=== PATIENT | male | born 1970 | race Caucasian/White ===

== ENCOUNTER 2017-08-29 10:59 | Emergency (ER) | payer OTHER, SELFPAY ==
[2017-08-29 12:44] LABS: #Eosinphils 0.1 thou/uL (0.0-0.7); #Monocytes 1.3 thou/uL (0.11-0.59); #Neutrophils 14.7 thou/uL (1.40-6.50); %Basophils 0.2 % (0.0-1.0); %Eosinophils 0.4 % (0.0-10.0); %Lymphocytes 5.7 % (21.0-51.0); %Monocytes 7.4 % (0.0-10.0); Hematocrit 41.4 % (42.0-52.0); Mean Platelet Volume 7.4 fL (7.4-10.4); Red Blood Cell (RBC) Count 3.84 mill/uL (4.70-6.10); White Blood Cell (WBC) Count 17.1 thou/uL (4.8-10.8)
[2017-08-29 12:51] LABS: PTT 27.1 SEC (22.9-36.1); Prothrombin Time 13.8 SEC (12.0-14.7)
[2017-08-29 12:57] LABS: Lactic Acid - Sepsis 1.3 mmol/L (0.5-2.2)
[2017-08-29 13:08] LABS: Anion Gap 11 mmol/L (10-20); BUN (Urea Nitrogen) 6 mg/dL (8.9-20.6); Calc. Creatinine Clearance 0 mL/min (70-130); Calcium 9.7 mg/dL (7.8-10.44); Carbon Dioxide 28 mmol/L (22-29); Chloride 102 mmol/L (98-107); Estimated GFR-MDRD Greater than 90
[2017-08-29] MEDS ORDERED: Morphine 2 MG/ML SYRINGE ONE ×2 (13:17→14:42)
[2017-08-29] MEDS ORDERED: Ondansetron HCl/PF 4 MG/2 ML Vial ONE (13:17)
[2017-08-29 13:40] LABS: Bilirubin Negative (Negative); Blood, Urine Negative (Negative); Glucose, Urine (Dipstick) Negative (Negative); Ketone, Urine Negative (Negative); Nitrite Negative (Negative); Protein, Urine (Dipstick) Negative (Neg-Trace)
[2017-08-29] MEDS ORDERED: Iopamidol 370 76% 50 ML VIAL FS ONE (13:52)
[2017-08-29] MEDS ORDERED: ISOVUE-370 76%-LOCM 1 ML ONE (13:53)
--- NOTE | 2017-08-29 14:29 | CT ---
CT ABDOMEN AND PELVIS WITH ORAL AND IV CONTRAST: Date: 08/29/17 HISTORY: Nausea, dizziness. Perirectal abscess. FINDINGS: There are mild dependent changes in the lung bases. The liver, spleen, pancreas, adrenal glands, and kidneys are normal. No calcified gallstones are seen. There is mild dilatation of the right ureter to the level of the pelvic brim. No calculi seen in the ureters or the urinary bladder. No free air, free fluid, or lymphadenopathy seen. A normal appearing appendix is present. There is fecal materia l in the colon. There is inflammatory change in the subcutaneous fat of the medial left gluteal crea se. No loculated fluid collection is identified to suggest abscess formation. There is a small amoun t of fluid without obvious loculation in the medial aspect of the left gluteal crease likely from a drained abscess. IMPRESSION: 1. Inflammatory changes in the left gluteal crease with probable drained abscess. No loculated flui d collection to suggest a drainable abscess. 2. Prominent right ureter. An IVP would be helpful. POS: KATIE
[2017-08-29] MEDS ORDERED: Clindamycin/D5W 600 mg/50 ml Premix Bag ONE (14:41)
[2017-08-29] MEDS ORDERED: Lidocaine 1.5% w/Epi 1:200K 30 ML VIAL (Epid Use) FS SCH (16:15)
[2017-08-29] MEDS ORDERED: Lidocaine 1% (PF) 30 ML VIAL ONE (19:14)
--- NOTE | 2017-08-30 05:31 | CON ---
DATE OF CONSULTATION: 08/29/2017 REASON FOR CONSULTATION: Perianal abscess. HISTORY: Mr. Grewal is a 47-year-old man with a several day history of left perianal pain. It started out as just some discomfort, but then became more severe and he noticed some redness in the area, so he went into the [facility] and was immediately sent to the emergency room for drainage of perianal abscess. He states that his primary care doctor worried that was too close to the sphincter to drain in the clinic. He has not had any issues with bowel control. He has no previous history of perianal abscess formation. He has had another abscess drained from his medial side, but nothing in the perianal area. He is otherwise healthy. He does not report any injury to the area. SOCIAL HISTORY: The patient does smoke a pack a day. No history of illicit drug use. He does drink socially. REVIEW OF SYSTEMS: Ten-system review of systems is negative except per HPI and the following. The patient has had some dizzy spells and some nausea intermittently since the onset of his symptoms. PHYSICAL EXAMINATION: VITAL SIGNS: Patient has been afebrile. In the emergency room, fairly normal vital signs. HEENT: Unremarkable. NECK: Supple without lymphadenopathy or thyroid nodules. HEART: Regular in its rate and rhythm without murmurs, rubs, or gallops. LUNGS: Clear to auscultation bilaterally. ABDOMEN: Soft, nontender, nondistended without palpable masses or hernias. EXTREMITIES: Warm and well perfused without edema. NEUROLOGIC: No focal deficits. PSYCHIATRIC: Alert, oriented, and appropriate. In the left perianal area, there is an indurated very tender area with surrounding cellulitis. There is softness centrally to suggest an abscess. IMAGING: CT shows inflammatory changes in the left gluteal crease area. LABORATORY DATA: White count is elevated at 17,000. Coags are normal. Electrolytes are unremarkable. C-reactive protein is elevated at 3.97. ASSESSMENT: Left perianal abscess. I have recommended incision and drainage at the bedside with Stephan drain placement postoperatively, and the patient is in agreement with this plan. This was performed as detailed below. The patient tolerated the procedure well. He is to do sitz baths twice a day and after each bowel movements and to return to see me in one week's time for removal of the Stephan drain. If he has increasing redness, swelling, or tenderness, he is to return to the emergency room. He is going to be discharged home with clindamycin orally. He is going to keep an eye on the erythema and if this is not improving on the antibiotics, he is to call or return, otherwise I will see him back in my clinic in 1 week's time for removal of the drain. PROCEDURE: Incision and drainage of left perianal abscess After informed consent was obtained the patient was placed in the left lateral decubitus position and the perianal area prepped with Betadine. Local anesthesia was infused to the fluctuant area near the left anal verge. A skin incision was made and a large abscess cavity opened. 10-20 mL's of pus was drained. The abscess cavity was irrigated and all loculations were broken up. A Stephan drain was placed into the wound and secured with a nylon suture. Gauze dressings were placed. Estimated blood loss is minimal. There were no complications. [facility]ENTER[facility]ernando
== END 2017-08-29 19:57 | disposition home or self-care (01) ==
LOC: ERS 10:59
DX: K61.0 Anal abscess (principal); F17.210 Nicotine dependence, cigarettes, uncomplicated
CPT/HCPCS: 36415; 46050; 74177; 80048; 81003; 83605; 85025; 85610; 85730; 86140; 87040; 96361; 96365; 96375; 96376; J2001; J2270; J2405; J3490